=== PATIENT | male | born 1995 | race African-American/Black ===

== ENCOUNTER 2020-01-25 01:57 | Emergency (ER) | payer SELFPAY ==
[~2020-01-25] VITALS: Ht 177.8 cm; Wt 68.0 kg
[2020-01-25 02:00] VITALS: BP 115/62
[2020-01-25] MEDS ORDERED: IBUPROFEN 600 MG TABLET PO ONE (03:30)
[2020-01-25] MEDS ORDERED: IBUPROFEN 600 MG TABLET ONE ×2 (03:46→03:48)
--- NOTE | 2020-01-25 03:59 | NUR ---
Patient discharged to home in stable condition. Written and verbal after care instructions given. Patient verbalizes understanding of instruction.
== END 2020-01-25 04:09 | disposition home or self-care (01) ==
LOC: ER 01:58
DX: S00.83XA Contusion of other part of head, initial encounter (principal); S10.83XA Contusion of other specified part of neck, initial encounter; S80.01XA Contusion of right knee, initial encounter; Z93.1 Gastrostomy status; V49.49XA Driver injured in collision with other motor vehicles in traffic accident, initial encounter; Y93.89 Activity, other specified; Y92.413 State road as the place of occurrence of the external cause; Y99.8 Other external cause status
CPT/HCPCS: 70450-TC; 72125-TC; 73564-TC